=== PATIENT | male | born 1950 | race Caucasian/White ===

== ENCOUNTER 2017-07-28 10:30 | Emergency (ER) | payer OTHER ==
[2017-07-28] MEDS ORDERED: ACETAMINOPHEN 1000 MG/100 ML VIAL (NON FORMULARY) IVPB ONE (10:43)
[2017-07-28] MEDS ORDERED: SODIUM CHLORIDE 1,000 ML IV STA (10:43)
[2017-07-28 10:44] VITALS: BP 145/96; PULSE 74; TEMP 98.3; BMI 28.1
--- NOTE | 2017-07-28 10:58 | PDOC ---
History of Present Illness - General Chief Complaint: Pain Stated Complaint: ABD PAIN Time Seen by Provider: 07/28/17 10:39 History Source: Patient, Family Exam Limitations: No Limitations - History of Present Illness Initial Comments: 07/28/17 10:52 67 year old male with past medical history of HLD p/w LLQ pain x 3 weeks. Reports as constant LLQ pain with no radiation. No dysuria, diarrhea, or fevers. Did not come sooner as he was afraid of needles. Pt is persistent. No blood in stool. Came in for an evaluation. Denies testicular pain. Past History - Past Medical History Allergies/Adverse Reactions: Allergies Allergy/AdvReac Type Severity Reaction Status Date / Time No Known Allergies Allergy Verified 07/28/17 10:40 Home Medications: Ambulatory Orders Bp Pill 1 tab PO DAILY 02/11/16 Ciprofloxacin [Cipro (Restricted To Id)] 500 mg PO Q12H #30 tablet 07/28/17 Naproxen 500 mg PO BID PRN #20 tablet 07/28/17 Water Pill 1 tab PO DAILY 07/28/17 metroNIDAZOLE [Flagyl -] 500 mg PO Q8H #30 tablet 07/28/17 COPD: No HTN: Yes - Suicide/Smoking/Psychosocial Hx Smoking Status: No Smoking History: Current some day smoker Have you smoked in the past 12 months: Yes Number of Cigarettes Smoked Daily: 1 Information on smoking cessation initiated: Yes 'Breaking Loose' booklet given: 07/28/17 Hx Alcohol Use: (social) Drug/Substance Use Hx: No Substance Use Type: None Review of Systems - Review of Systems Able to Perform ROS?: Yes Comments:: 07/28/17 10:58 GENERAL/CONSTITUTIONAL: No fever, weakness. HEAD, EYES, EARS, NOSE AND THROAT: No change in vision. No ear pain or discharge. No sore throat. CARDIOVASCULAR: No chest pain or shortness of breath. RESPIRATORY: No cough, wheezing, or hemoptysis. GASTROINTESTINAL: + abdominal pain. No nausea, vomiting, diarrhea, or decreased PO intolerance. GENITOURINARY: No dysuria, frequency, or change in urination. MUSCULOSKELETAL: No joint or muscle swelling or pain. No neck or back pain. SKIN: No rash NEUROLOGIC: No headache, vertigo, loss of consciousness, or change in strength/ sensation. ENDOCRINE: No increased thirst. No abnormal weight change. HEMATOLOGIC/LYMPHATIC: No anemia, easy bleeding, or history of blood clots. ALLERGIC/IMMUNOLOGIC: No hives or skin allergy. *Physical Exam - Vital Signs Last Vital Signs Temp Pulse Resp BP Pulse Ox 98.3 F 74 18 145/96 98 07/28/17 10:30 07/28/17 10:30 07/28/17 10:30 07/28/17 10:30 07/28/17 10:30 - Physical Exam Comments: 07/28/17 11:09 GENERAL: Awake, alert, and fully oriented, in no acute distress. HEAD: No signs of trauma EYES: PERRLA, EOMI, sclera anicteric, conjunctiva clear ENT: Auricles normal inspection, hearing grossly normal, NECK: Normal ROM, supple LUNGS: Breath sounds equal, clear to auscultation bilaterally. No wheezes, and no crackles HEART: Regular rate and rhythm, normal S1 and S2, no murmurs, rubs or gallops ABDOMEN: Soft, TTP LLQ. No guarding, no rebound. No masses EXTREMITIES: Normal range of motion, no edema. No clubbing or cyanosis. No cords, erythema, or tenderness NEUROLOGICAL: Cranial nerves II through XII grossly intact. Normal speech, normal gait SKIN: Warm, Dry, normal turgor, no rashes or lesions noted. ED Treatment Course - LABORATORY CBC & Chemistry Diagram: 07/28/17 11:00 07/28/17 11:00 - RADIOLOGY Radiology Studies Ordered: Category Date Time Status ABDOMEN & PELVIS CT WITH CONTR [CT] Stat CT Scan 07/28/17 10:41 Ordered Medical Decision Making - Medical Decision Making 07/28/17 11:09 Vital Signs Temp Pulse Resp BP Pulse Ox 98.3 F 74 18 145/96 98 07/28/17 10:30 07/28/17 10:30 07/28/17 10:30 07/28/17 10:30 07/28/17 10:30 LLQ pain. R/o colitis, diverticulitis, cystitis. Labs, UA, CT abdomen and pelvis. 07/28/17 13:35 CBC, BMP 07/28/17 11:00 07/28/17 11:00 CMP Sodium 135 mmol/L (136-145) L 07/28/17 11:00 Potassium 3.6 mmol/L (3.5-5.1) 07/28/17 11:00 Chloride 104 mmol/L (98-107) 07/28/17 11:00 Carbon Dioxide 25 mmol/L (22-28) 07/28/17 11:00 Anion Gap 6 (8-16) L 07/28/17 11:00 BUN 10 mg/dl (7-18) 07/28/17 11:00 Creatinine < 0.8 mg/dl (0.6-1.3) 07/28/17 11:00 Creat Clearance w eGFR > 60 (>60) 07/28/17 11:00 Random Glucose 138 mg/dl (74-106) H 07/28/17 11:00 Calcium 8.4 mg/dl (8.4-10.2) 07/28/17 11:00 Total Bilirubin 0.8 mg/dl (0.2-1.0) 07/28/17 11:00 AST 17 U/L (10-42) 07/28/17 11:00 ALT 14 U/L (10-40) 07/28/17 11:00 Alkaline Phosphatase 51 U/L (32-92) 07/28/17 11:00 Total Protein 6.3 g/dl (6.4-8.3) L 07/28/17 11:00 Albumin 3.6 g/dl (3.5-5.0) 07/28/17 11:00 Lipase 283 U/L (73-393) 07/28/17 11:00 Urine Test Results Urine Color Ksenia 07/28/17 11:06 Urine Appearance Clear 07/28/17 11:06 Urine pH 5.5 (4.5-8) 07/28/17 11:06 Ur Specific [place] 1.025 (1.005-1.025) 07/28/17 11:06 Urine Protein Negative (NEGATIVE) 07/28/17 11:06 Urine Glucose (UA) Negative (NEGATIVE) 07/28/17 11:06 Urine Ketones Negative (NEGATIVE) 07/28/17 11:06 Urine Blood Trace-intact (NEGATIVE) H 07/28/17 11:06 Urine Nitrite Negative (NEGATIVE) 07/28/17 11:06 Urine Bilirubin Negative (NEGATIVE) 07/28/17 11:06 Ur Leukocyte Esterase Negative (NEGATIVE) 07/28/17 11:06 Urine RBC 0-1 /hpf (0-3) 07/28/17 11:06 CT scan shows chronic diverticulitis/diverticulosis. I advised the patient that he should complete the antibiotics (cipro and flagyl) , avoid alcohol, and once his diverticulitis is resolved to undergo a colonoscopy. The patient has been given the results. He feels significantly better. The patient would like to go home. Return precautions given. Pt verbalizes understanding and agrees with plan. I discussed the physical exam findings, ancillary test results and final diagnoses with the patient. I answered all of the patient's questions. The patient was satisfied with the care received and felt comfortable with the discharge plan and treatment plan. The patient will call their primary care physician within 24 hours to arrange follow-up and will return to the Emergency Department with any new, persistant or worsening symptoms. 07/28/17 13:36 Pt reports that he has his own doctors and would like to follow up with his doctors. *DC/Admit/Observation/Transfer Diagnosis at time of Disposition: Diverticulitis - Discharge Dispostion Disposition: HOME Condition at time of disposition: Stable Admit: No - Prescriptions Prescriptions: Ciprofloxacin [Cipro (Restricted To Id)] 500 mg PO Q12H #30 tablet metroNIDAZOLE [Flagyl -] 500 mg PO Q8H #30 tablet Naproxen 500 mg PO BID PRN #20 tablet PRN Reason: Pain - Referrals Referrals: Donn Miner MD [Staff Physician] - - Patient Instructions Printed Discharge Instructions: DI for Diverticulosis, DI for Diverticulitis Additional Instructions: Your CT scan shows chronic diverticulitis and diverticulosis. It is very important that you take your antibiotics as prescribed. Ciprofloxacin and Flagyl. Do not drink alcohol on this medication. Please bring the results to your doctor on your follow up visit on August 09. It is important that you discuss the need for colonscopy. Take 500 mg naproxen every 12 hours as needed for pain. It may take several days before your symptoms improve. Print Language: ZIMBABWEAN - Post Discharge Activity
[2017-07-28] MEDS ORDERED: ACETAMINOPHEN INJECTION 100 ML IVPB ONE (11:06)
[2017-07-28 11:10] LABS: BASO % 0.6 % (0-2.0); EOS % 2.7 % (0-4.5); HEMOGLOBIN 14.9 GM/dl (11.7-16.9); LYMPH % 27.4 % (8-40); MCH 28.7 pg (25.7-33.7); MCHC 33.1 g/dl (32.0-35.9); MEAN CELL VOLUME 86.7 fl (80-96); MEAN PLT VOLUME 8.5 fl (7.5-11.1); MONO % 7.3 % (3.8-10.2); PLATELET COUNT 258 K/MM3 (134-434); RDW 12.5 % (11.9-15.9); WHITE BLOOD COUNT 7.4 K/mm3 (4.0-10.8)
[2017-07-28 11:14] LABS: PH,URINE 5.5 (4.5-8); URINE APPEARANCE Clear; URINE BILIRUBIN Negative (NEGATIVE); URINE GLUCOSE (UA) Negative (NEGATIVE); URINE KETONE Negative (NEGATIVE); URINE LEUK ESTERASE Negative (NEGATIVE); URINE NITRITE Negative (NEGATIVE); URINE PROTEIN Negative (NEGATIVE); URINE UROBILINOGEN 0.2 (0.2-1.0)
[2017-07-28 11:16] LABS: URINE BLOOD Trace-intact (NEGATIVE); URINE COLOR AMBER
[2017-07-28 11:28] LABS: ALBUMIN 3.6 g/dl (3.5-5.0); ALK PHOS 51 U/L (32-92); ANION GAP 6 (8-16); BILIRUBIN,TOTAL 0.8 mg/dl (0.2-1.0); BLOOD UREA NITROGEN 10 mg/dl (7-18); CALCIUM 8.4 mg/dl (8.4-10.2); CHLORIDE 104 mmol/L (98-107); CO2 25 mmol/L (22-28); GLUCOSE,RANDOM 138 mg/dl (74-106); POTASSIUM 3.6 mmol/L (3.5-5.1); SGOT/AST 17 U/L (10-42); SGPT/ALT 14 U/L (10-40); SODIUM 135 mmol/L (136-145); TOT PROT 6.3 g/dl (6.4-8.3)
[2017-07-28 11:33] LABS: URINE RBC 0-1 /hpf (0-3)
[2017-07-28 11:38] LABS: CREATININE < 0.8 mg/dl (0.6-1.3)
[2017-07-28 12:36] LABS: LIPASE 283 U/L (73-393)
[2017-07-28] MEDS ORDERED: morphine CARPU-JECT 4 MG/1 ML DISP.SYRIN IVPUSH ONE (12:55)
[2017-07-28] MEDS ORDERED: morphine SULFATE 4 MG/ML VIAL ONE (12:57)
[2017-07-28] MEDS ORDERED: metroNIDAZOLE 250 MG TABLET PO ONE (13:34)
[2017-07-28] MEDS ORDERED: CIPROFLOXACIN 500 MG TABLET (RESTRICTED TO ID) PO ONE (13:34)
[2017-07-28] MEDS ORDERED: CIPROFLOXACIN 250 MG TABLET (RESTRICTED TO ID) PO ONE (13:44)
[2017-07-28] MEDS ORDERED: metroNIDAZOLE 250 MG TABLET ONE (13:44)
== END 2017-07-28 13:52 | disposition home or self-care (01) ==
LOC: FER 10:30
PROC: 3E033NZ Introduction of Analgesics, Hypnotics, Sedatives into Peripheral Vein, Percutaneous Approach (ICD-10-PCS; principal; 2017-07-28)
PROC: 3E0337Z Introduction of Electrolytic and Water Balance Substance into Peripheral Vein, Percutaneous Approach (ICD-10-PCS; 2017-07-28)
DX: K57.92 Diverticulitis of intestine, part unspecified, without perforation or abscess without bleeding (principal); I10 Essential (primary) hypertension; E78.5 Hyperlipidemia, unspecified
CPT/HCPCS: 36415; 74177-TC; 80053; 81003; 81015; 83690; 85025; 87086; 96361; 96374; 96375; 99283-25; J0131; J7030

== ENCOUNTER 2017-10-05 11:38 | Emergency (ER) | payer OTHER ==
--- NOTE | 2017-10-05 11:41 | PDOC ---
History of Present Illness - General Chief Complaint: Back Pain Stated Complaint: BACK PAIN Time Seen by Provider: 10/05/17 11:39 History Source: Patient Exam Limitations: No Limitations - History of Present Illness Initial Comments: 10/05/17 11:40 Mr Arrington is a 67 yo M who presents to the ER with a complaint of back pain Pt states he has a history of chronic back pain Pt pain has been non remitting for more than 3 weeks No recent direct trauma to the back No pain radiating to the leg No bowel or bladder incontinence No focal weakness or numbness No fevers or chills No IVDU Pt was seen by PMD who ordered MRI Unfortunately when patient showed up for the MRI, it was only for his shoulder ( Which also hurts), not for his back Pt became frustrated and walked out They returned back to the PMDs office but she would not see them THey presents here today requesting an MRI PMH: Hypertension PSH: Denies Medications: ? 5 mg A LL: NKDA Social tobacco use, occasional alcohol, denies drug GENERAL/CONSTITUTIONAL: No: fever, chills, weakness, loss of appetite. HEAD, EYES, EARS, NOSE AND THROAT: No: change in vision, ear pain, discharge, sore throat, throat swelling. CARDIOVASCULAR: No: chest pain, lightheadedness, palpitations, syncope RESPIRATORY: No: cough, shortness of breath, wheezing, hemoptysis, stridor. GASTROINTESTINAL: No: nausea, vomiting, diarrhea, abdominal cramping, rectal bleeding, constipation. GENITOURINARY: No: dysuria, hematuria, frequency, urgency, flank pain. MUSCULOSKELETAL: Yes: back pain, left leg heaviness No: neck pain, joint pain, muscle swelling or pain SKIN: No: lesions, pallor, rash or easy bruising. NEUROLOGIC: No: headache, vertigo, paresthesias, weakness ENDOCRINE: No: unexplained weight gain or loss HEMATOLOGIC/LYMPHATIC: No: anemia, easy bleeding, swelling nodes. GENERAL: The patient is in no acute distress. HEAD: Normal EYES: PERRLA, EOMI, sclera anicteric, conjunctiva clear. ENT: Ears normal, nares patent, oropharynx clear without exudates. Moist mucous membranes. NECK: Normal range of motion LUNGS: Breath sounds equal, clear to auscultation bilaterally. HEART:Regular rate and rhythm, normal S1 and S2 without murmur, rub or gallop. ABDOMEN: Soft, nontender EXTREMITIES: Normal range of motion, no edema. NEUROLOGICAL: Cranial nerves II through XII grossly intact. Normal speech. No focal neurological deficits. MUSCULOSKELETAL: (+) midline thoracic/lumbar tenderness to palpation Straight leg raise (+) on left side Motor NML: L1 - S1 Sensation NML: L1 - S1 SKIN: Warm, Dry, normal turgor, no rashes or lesions noted. 10/05/17 12:18 10/05/17 12:21 10/05/17 12:31 Past History - Past Medical History Allergies/Adverse Reactions: Allergies Allergy/AdvReac Type Severity Reaction Status Date / Time No Known Allergies Allergy Verified 10/05/17 11:38 Home Medications: Ambulatory Orders Bp Pill 1 tab PO DAILY 02/11/16 Water Pill 1 tab PO DAILY 07/28/17 Lidocaine 5% Patch [Lidoderm Patch -] 1 patch TP DAILY PRN #30 patch 10/05/17 Methocarbamol [Robaxin -] 500 mg PO TID PRN #30 tablet 10/05/17 Naproxen Sodium 220 mg PO BID PRN #30 tablet 10/05/17 Oxycodone HCl/Acetaminophen [Percocet 5-325 mg Tablet -] 1 tab PO Q8H PRN #12 tablet MDD 3 10/05/17 COPD: No HTN: Yes - Suicide/Smoking/Psychosocial Hx Smoking Status: No Smoking History: Current some day smoker Have you smoked in the past 12 months: Yes Number of Cigarettes Smoked Daily: 1 'Breaking Loose' booklet given: 07/28/17 Hx Alcohol Use: (social) Drug/Substance Use Hx: No Substance Use Type: None Medical Decision Making - Medical Decision Making 10/05/17 12:30 Pt with chronic back pain Requesting MRI CT from last year reviewed No aortic enlargement reported, pt had broad based disc bulge Will discharge to home Follow up with Dr Baum Pain medicatiions 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, 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 and 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 narcotic medication Clinical Impression: sciatica, initial presentation *DC/Admit/Observation/Transfer Diagnosis at time of Disposition: Lumbago with sciatica, left side Qualifiers: Chronicity: chronic Back pain laterality: left Qualified Code(s): M54.42 - Lumbago with sciatica, left side - Discharge Dispostion Disposition: HOME Condition at time of disposition: Stable Decision to Admit order: No - Prescriptions Prescriptions: Lidocaine 5% Patch [Lidoderm Patch -] 1 patch TP DAILY PRN #30 patch PRN Reason: Pain Methocarbamol [Robaxin -] 500 mg PO TID PRN #30 tablet PRN Reason: Lower Back Pain Naproxen Sodium 220 mg PO BID PRN #30 tablet PRN Reason: Pain Oxycodone HCl/Acetaminophen [Percocet 5-325 mg Tablet -] 1 tab PO Q8H PRN #12 tablet MDD 3 PRN Reason: Severe Pain - Referrals Referrals: Pedro Baum MD [Staff Physician] - Zenon Jin MD [Staff Physician] - Enoc Perez MD, FAANS [Staff Physician] - - Patient Instructions Printed Discharge Instructions: Back Pain (Alternative Therapy), Low Back Pain , DI for Low Back Pain, DI for Back Pain With Sciatica Additional Instructions: Mr Arrington Nba por venir a la susana de emergencia hoy Por favor, asegrese de llamar hoy para kinjal thais con el mdico de atencin primaria Regrese a la susana de emergencias por un dolor que no mejora O cualquier otra inquietud o queja Por favor, tome analgsicos segn lo recetado. Thank you for coming to the ER today Please be sure to call today for an appointment with the primary care physician Return to the ER for pain which does not improve OR any other concerns or complaints Please take pain medications as prescribed. Print Language: OCCITAN - Post Discharge Activity Forms/Work/School Notes: Back to Work
[2017-10-05 11:43] VITALS: BP 124/94; PULSE 65; TEMP 99.1; BMI 29.0
== END 2017-10-05 12:47 | disposition home or self-care (01) ==
LOC: FER 11:38
DX: M54.42 Lumbago with sciatica, left side (principal); F17.210 Nicotine dependence, cigarettes, uncomplicated; I10 Essential (primary) hypertension; G89.29 Other chronic pain
CPT/HCPCS: 99283-25

== ENCOUNTER 2020-07-27 08:59 | Emergency (ER) | payer OTHER ==
[2020-07-27 09:18] VITALS: BP 118/82; PULSE 73; TEMP 99; BMI 31.4
== END 2020-07-27 09:45 | disposition home or self-care (01) ==
LOC: FER 08:59
DX: L24.0 Irritant contact dermatitis due to detergents (principal)
CPT/HCPCS: 99282-25

== ENCOUNTER 2022-09-29 05:55 | Emergency (ER) | payer OTHER ==
[2022-09-29 06:18] VITALS: TEMP 98.2; BMI 31.6
[2022-09-29] MEDS ORDERED: ACETAMINOPHEN 1000 MG/100 ML BAG IVPB ONE (06:45)
[2022-09-29] MEDS ORDERED: SODIUM CHLORIDE 0.9% 500 ML INFUS.BAG IV ONE (06:45)
[2022-09-29] MEDS ORDERED: ACETAMINOPHEN INJECTION 100 ML IVPB ONE (07:33)
[2022-09-29 07:48] LABS: BASO % 0.9 % (0-2.0); EOS % 3.8 % (0-4.5); HEMATOCRIT 50.7 % (35.4-49); HEMOGLOBIN 16.7 GM/dL (11.7-16.9); LYMPH % 22.1 % (8-40); MCH 27.7 pg (25.7-33.7); MCHC 32.9 g/dl (32.0-35.9); MEAN CELL VOLUME 84.2 fl (80-96); MEAN PLT VOLUME 9.1 fl (7.5-11.1); MONO % 8.3 % (3.8-10.2); NEUT % 64.9 % (42.8-82.8); PLATELET COUNT 285 10^3/uL (134-434); RBC 6.02 M/mm3 (4.00-5.60); WHITE BLOOD COUNT 8.8 K/mm3 (4.0-10.0)
[2022-09-29 08:00] LABS: POTASSIUM 4.1 mmol/L (3.5-5.1)
[2022-09-29 08:02] LABS: BLOOD UREA NITROGEN 13.4 mg/dL (7-18); CALCIUM 9.5 mg/dL (8.5-10.1)
[2022-09-29 08:03] LABS: ALBUMIN 4.3 g/dl (3.4-5.0)
[2022-09-29 08:05] LABS: CREATININE 0.8 mg/dL (0.55-1.3)
[2022-09-29 08:08] LABS: BILIRUBIN,TOTAL 0.8 mg/dL (0.2-1); TOT PROT 7.7 g/dl (6.4-8.2)
[2022-09-29] MEDS ORDERED: KETOROLAC TROMETHAMINE 15 MG/ML VIAL IVPUSH ONE (08:30)
[2022-09-29] MEDS ORDERED: KETOROLAC TROMETHAMINE 15 MG/ML VIAL ONE (08:43)
[2022-09-29 09:04] LABS: PH,URINE 5.5 (5.0-8.0); URINE APPEARANCE CLEAR; URINE BILIRUBIN NEGATIVE (NEGATIVE); URINE COLOR YELLOW; URINE GLUCOSE (UA) NEGATIVE (NEGATIVE); URINE KETONE NEGATIVE (NEGATIVE); URINE LEUK ESTERASE NEGATIVE (NEGATIVE); URINE NITRITE NEGATIVE (NEGATIVE); URINE PROTEIN NEGATIVE (NEGATIVE); URINE UROBILINOGEN 0.2 mg/dL (0.2-1.0)
[2022-09-29 09:47] VITALS: BP 157/91; PULSE 61; RESP 18
== END 2022-09-29 10:30 | disposition home or self-care (01) ==
LOC: JER 05:55
PROC: 3E033NZ Introduction of Analgesics, Hypnotics, Sedatives into Peripheral Vein, Percutaneous Approach (ICD-10-PCS; principal; 2022-09-29)
PROC: 3E033GC Introduction of Other Therapeutic Substance into Peripheral Vein, Percutaneous Approach (ICD-10-PCS; 2022-09-29)
DX: R10.32 Left lower quadrant pain (principal)
CPT/HCPCS: 36415; 74177-TC; 80053; 81003; 83690; 85025; 87086; 96374; 96375; 99285-25; Q9967

== ENCOUNTER 2023-06-13 04:25 | Day surgery (SDC) | payer OTHER ==
[2023-06-13] MEDS ORDERED: BUPIVACAINE HCL/PF 0.75% 10 ML VIAL ONE (07:21)
[2023-06-13] MEDS ORDERED: LIDOCAINE HCL/PF 1% SDV 5ML VIAL ONE (07:21)
[2023-06-13] MEDS ORDERED: EPINEPHrine/PF 1 MG/1 ML (1:1,000) AMPULE ONE (07:21)
[2023-06-13] MEDS ORDERED: BSS (NA/CA/MG/K) BALANCED SALT SOLUTION OPHTH SOLN 15 ML BOTTLE ONE (07:21)
[2023-06-13] MEDS ORDERED: LIDOCAINE HCL/PF 2% SDV 5ML VIAL ONE (07:21)
[2023-06-13] MEDS ORDERED: POVIDONE-IODINE 5% OPHTHALMIC PREP 30 ML SOLUTION ONE (07:22)
[2023-06-13 07:27] VITALS: BMI 30.1
[2023-06-13 07:31] VITALS: RESP 20
[2023-06-13] MEDS: KETOROLAC TROMETHAMINE 0.5% EYE DROP 1 DROP DROPS ONE (07:40)
[2023-06-13] MEDS: CYCLOPENTOLATE HCL 1% OPHTH SOLN 2 ML BOTTLE ONE (07:40)
[2023-06-13] MEDS: OFLOXACIN 0.3% OPHTHALMIC SOLUTION 5 ML BOTTLE ONE (07:40)
[2023-06-13] MEDS: TROPICAMIDE 1% OPHTH SOLN 15 ML BOTTLE ONE (07:40)
[2023-06-13] MEDS: PHENYLEPHRINE 2.5% OPTHALMIC DROP 2ML BOTTLE ONE (07:40)
[2023-06-13] MEDS ORDERED: PROPOFOL 20 ML ONE (08:47)
[2023-06-13] MEDS ORDERED: MIDAZOLAM HCL 2 MG/2 ML SINGLE DOSE VIAL ONE (08:48)
[2023-06-13] MEDS: LIDOCAINE HCL/PF 2% SDV 5ML VIAL INF ONE ×2 (09:01)
[2023-06-13] MEDS: BUPIVACAINE HCL/PF 0.75% 10 ML VIAL NR ONE ×2 (09:01)
[2023-06-13] MEDS: POVIDONE-IODINE 5% OPHTHALMIC PREP 30 ML SOLUTION OS ONE ×2 (09:03)
[2023-06-13] MEDS: BSS (NA/CA/MG/K) BALANCED SALT SOLUTION OPHTH SOLN 15 ML BOTTLE OS ONE ×2 (09:09)
[2023-06-13] MEDS: CHONDROITIN SU A/HYALUR SOD 1 KIT IO ONE ×2 (09:12)
[2023-06-13] MEDS: LIDOCAINE HCL 1% PRESERVATIVE FREE - 30ML VIAL IO ONE ×2 (09:12)
[2023-06-13] MEDS ORDERED: ONDANSETRON 4 MG/2 ML VIAL ONE (09:16)
[2023-06-13] MEDS: EPINEPHrine 1:1,000 1,000 MCG/ML ML SQ ONE ×2 (09:21)
[2023-06-13 12:38] VITALS: TEMP 97.6
[2023-06-13 13:00] VITALS: BP 123/72; PULSE 52
== END 2023-06-13 10:20 | disposition home or self-care (01) ==
LOC: JASU-SURG 04:25
PROVIDERS: ATTEND Ophthalmology
PROC: 08RK3JZ Replacement of Left Lens with Synthetic Substitute, Percutaneous Approach (ICD-10-PCS; principal; 2023-06-13 10:00)
DX: H26.9 Unspecified cataract (principal)
CPT/HCPCS: V2632

== ENCOUNTER 2023-06-27 05:21 | Day surgery (SDC) | payer OTHER ==
[2023-06-25 09:46] VITALS: BMI 29.9
[~2023-06-27 05:21] MED LIST: CYCLOPENTOLATE HCL 1% OPHTH SOLN 2 ML BOTTLE OP SCH; KETOROLAC TROMETHAMINE 0.5% EYE DROP 1 DROP DROPS OP SCH; OFLOXACIN 0.3% OPHTHALMIC SOLUTION 5 ML BOTTLE OP SCH; PHENYLEPHRINE 2.5% OPHTH SOLN 15 ML BOTTLE OP SCH; TROPICAMIDE 1% OPHTH SOLN 15 ML BOTTLE OP SCH
[2023-06-27] MEDS ORDERED: LIDOCAINE HCL/PF 1% SDV 5ML VIAL ONE (07:26)
[2023-06-27] MEDS ORDERED: LIDOCAINE HCL/PF 2% SDV 5ML VIAL ONE (07:26)
[2023-06-27] MEDS ORDERED: POVIDONE-IODINE 5% OPHTHALMIC PREP 30 ML SOLUTION ONE (07:27)
[2023-06-27] MEDS ORDERED: BUPIVACAINE HCL/PF 0.75% 10 ML VIAL ONE (07:27)
[2023-06-27] MEDS ORDERED: BSS (NA/CA/MG/K) BALANCED SALT SOLUTION OPHTH SOLN 15 ML BOTTLE ONE (07:27)
[2023-06-27] MEDS ORDERED: KETOROLAC TROMETHAMINE 0.5% EYE DROP 1 DROP DROPS ONE (09:30)
[2023-06-27] MEDS ORDERED: CYCLOPENTOLATE HCL 1% OPHTH SOLN 2 ML BOTTLE ONE (09:30)
[2023-06-27] MEDS ORDERED: PHENYLEPHRINE 2.5% OPTHALMIC DROP 2ML BOTTLE ONE (09:30)
[2023-06-27] MEDS ORDERED: OFLOXACIN 0.3% OPHTHALMIC SOLUTION 5 ML BOTTLE ONE (09:30)
[2023-06-27] MEDS ORDERED: TROPICAMIDE 1% OPHTH SOLN 15 ML BOTTLE ONE (09:30)
[2023-06-27 09:50] VITALS: RESP 18
[2023-06-27] MEDS ORDERED: PROPOFOL 20 ML ONE (13:05)
[2023-06-27] MEDS: BUPIVACAINE HCL/PF 0.75% 10 ML VIAL RB ONE (13:13)
[2023-06-27] MEDS: LIDOCAINE HCL/PF 2% SDV 5ML VIAL INF ONE (13:13)
[2023-06-27] MEDS: POVIDONE-IODINE 5% OPHTHALMIC PREP 30 ML SOLUTION OD ONE (13:16)
[2023-06-27] MEDS ORDERED: FENTANYL CITRATE/PF 50 MCG/ML VIAL ONE ×2 (13:17→13:26)
[2023-06-27] MEDS: LIDOCAINE HCL 1% PRESERVATIVE FREE - 30ML VIAL IO ONE (13:23)
[2023-06-27] MEDS: TRYPAN BLUE 0.5 ML DISP.SYRIN IO ONE (13:24)
[2023-06-27] MEDS: CHONDROITIN SU A/HYALUR SOD 1 KIT IO ONE (13:24)
[2023-06-27] MEDS: EPINEPHrine/PF 1 MG/1 ML (1:1,000) AMPULE IO ONE (13:30)
[2023-06-27] MEDS ORDERED: ACETAMINOPHEN 325 MG TABLET (FP) ONE (14:13)
[2023-06-27] MEDS: ACETAMINOPHEN 325 MG TABLET (FP) PO PRN (14:14)
[2023-06-27 15:53] VITALS: BP 124/74; PULSE 62; TEMP 97.7
== END 2023-06-27 15:37 | disposition home or self-care (01) ==
LOC: JASU-SURG 05:21
PROVIDERS: ATTEND Ophthalmology
PROC: 08RJ3JZ Replacement of Right Lens with Synthetic Substitute, Percutaneous Approach (ICD-10-PCS; principal; 2023-06-27 12:00)
DX: H26.8 Other specified cataract (principal)
CPT/HCPCS: V2632

== ENCOUNTER 2024-03-03 14:25 | Emergency (ER) | payer OTHER ==
[2024-03-03 14:43] VITALS: RESP 18; TEMP 98.5; BMI 29.0
[2024-03-03 17:28] LABS: PH,URINE 7.5 (5.0-8.0); URINE APPEARANCE CLEAR; URINE BILIRUBIN NEGATIVE (NEGATIVE); URINE COLOR YELLOW; URINE GLUCOSE (UA) NEGATIVE (NEGATIVE); URINE KETONE NEGATIVE (NEGATIVE); URINE LEUK ESTERASE NEGATIVE (NEGATIVE); URINE NITRITE NEGATIVE (NEGATIVE); URINE PROTEIN NEGATIVE (NEGATIVE); URINE UROBILINOGEN 0.2 mg/dL (0.2-1.0)
[2024-03-03 18:11] LABS: BASO % 0.7 % (0-2.0); EOS % 2.4 % (0-4.5); HEMATOCRIT 47.6 % (35.4-49); HEMOGLOBIN 15.6 GM/dL (11.7-16.9); LYMPH % 24.8 % (8-40); MCH 28.3 pg (25.7-33.7); MCHC 32.8 g/dl (32.0-35.9); MEAN CELL VOLUME 86.2 fl (80-96); MEAN PLT VOLUME 8.6 fl (7.5-11.1); MONO % 8.8 % (3.8-10.2); NEUT % 63.3 % (42.8-82.8); PLATELET COUNT 277 10^3/uL (134-434); RBC 5.52 M/mm3 (4.00-5.60); RDW 14.2 % (11.9-15.9)
[2024-03-03] MEDS ORDERED: ACETAMINOPHEN INJECTION 100 ML ONE (18:13)
[2024-03-03] MEDS: ACETAMINOPHEN 1000 MG/100 ML BAG IVPB ONE (18:23)
[2024-03-03 18:29] LABS: POTASSIUM 3.7 mmol/L (3.5-5.1)
[2024-03-03 18:31] LABS: ALBUMIN 3.8 g/dl (3.4-5.0); CALCIUM 9.5 mg/dL (8.5-10.1)
[2024-03-03 18:32] LABS: BLOOD UREA NITROGEN 10.4 mg/dL (7-18)
[2024-03-03 18:35] LABS: CREATININE 0.9 mg/dL (0.55-1.3)
[2024-03-03 18:36] LABS: BILIRUBIN,TOTAL 0.8 mg/dL (0.2-1); TOT PROT 7.2 g/dl (6.4-8.2)
[2024-03-03] MEDS ORDERED: KETOROLAC TROMETHAMINE 30 MG/1 ML VIAL ONE (20:01)
[2024-03-03] MEDS: KETOROLAC TROMETHAMINE 30 MG/1 ML VIAL IVPUSH ONE (20:05)
[2024-03-03] MEDS: KCL 10 MEQ IVPB 10 MEQ/100 ML INFUS.BAG IVPB SCH (20:09)
[2024-03-03 22:27] VITALS: BP 128/81; PULSE 76
== END 2024-03-03 22:27 | disposition home or self-care (01) ==
LOC: JER 14:25
PROC: 3E033NZ Introduction of Analgesics, Hypnotics, Sedatives into Peripheral Vein, Percutaneous Approach (ICD-10-PCS; principal; 2024-03-03)
PROC: 3E0333Z Introduction of Anti-inflammatory into Peripheral Vein, Percutaneous Approach (ICD-10-PCS; 2024-03-03)
DX: R10.32 Left lower quadrant pain (principal); M54.50 Low back pain, unspecified
CPT/HCPCS: 36415; 74177-TC; 80053; 81003; 83605; 83690; 85025; 86850; 86900; 86901; 87086; 96374; 96375; 99285-25; J0131; Q9967